=== PATIENT | female | born 1995 | race Asian ===

== ENCOUNTER 2022-10-23 04:30 | Day surgery (SDC) | payer OTHER ==
[2022-10-21 16:33] VITALS: BMI 19.4
[2022-10-23 09:38] VITALS: TEMP 97.3
[2022-10-23 09:47] VITALS: PULSE 68; RESP 15
[2022-10-23 10:11] VITALS: BP 101/58
== END 2022-10-23 10:57 | disposition home or self-care (01) ==
LOC: JASU-ENDO 04:30
PROVIDERS: ATTEND Internal Medicine Gastroenterology
PROC: 0DBP8ZX Excision of Rectum, Via Natural or Artificial Opening Endoscopic, Diagnostic (ICD-10-PCS; 2022-10-23)
PROC: 0DBM8ZX Excision of Descending Colon, Via Natural or Artificial Opening Endoscopic, Diagnostic (ICD-10-PCS; 2022-10-23)
PROC: 0DBH8ZX Excision of Cecum, Via Natural or Artificial Opening Endoscopic, Diagnostic (ICD-10-PCS; principal; 2022-10-23 08:30)
DX: K52.9 Noninfective gastroenteritis and colitis, unspecified (principal)
CPT/HCPCS: 81025; 88305-TC

== ENCOUNTER 2025-03-15 06:40 | Day surgery (SDC) | payer OTHER ==
[2025-03-13 11:45] VITALS: BMI 24.0
[2025-03-15] MEDS ORDERED: oxyCODONE HCL 5 MG TABLET PO PRN (09:16)
[2025-03-15] MEDS ORDERED: ONDANSETRON 4 MG/2 ML VIAL IVPUSH PRN (09:16)
[2025-03-15] MEDS ORDERED: LACTATED RINGERS SOLUTION 1,000 ML IV SCH (09:30)
[2025-03-15] MEDS ORDERED: MIDAZOLAM HCL 2 MG/2 ML SINGLE DOSE VIAL ONE (10:25)
[2025-03-15] MEDS ORDERED: PROPOFOL 20 ML ONE (10:25)
[2025-03-15] MEDS: ACETAMINOPHEN 1000 MG/100 ML BAG IVPB ONE (12:03)
[2025-03-15 12:42] VITALS: RESP 16
[2025-03-15 15:00] VITALS: BP 110/68; PULSE 87; TEMP 97.7
== END 2025-03-15 15:45 | disposition home or self-care (01) ==
LOC: JASU-SURG 06:40
PROVIDERS: ATTEND Obstetrics & Gynecology
PROC: 0UB98ZZ Excision of Uterus, Via Natural or Artificial Opening Endoscopic (ICD-10-PCS; principal; 2025-03-15 11:00)
DX: N93.9 Abnormal uterine and vaginal bleeding, unspecified (principal); N84.0 Polyp of corpus uteri
CPT/HCPCS: 88305-TC; 94760